=== PATIENT | female | born 1990 | race Caucasian/White ===

== ENCOUNTER 2018-08-15 11:40 | Inpatient (IN) | payer MEDICAID ==
[~2018-08-15] VITALS: Ht 157.5 cm; Wt 77.0 kg
[~2018-08-15 11:40] MED LIST: FERR-31 PO; FOLI-49 PO; PRENAT PO
[2018-08-15 12:44] VITALS: Ht 157.5 cm; Wt 77.0 kg
[2018-08-15 12:45] VITALS: BP 132/78; PULSE 86; RESP 20
--- NOTE | 2018-08-15 14:25 | TRIAGE ---
OB Triage Datetime Report Generated by CPN: 08/15/2018 14:25 Datetime: 08/15/2018 12:40 Time of Arrival: 08/15/2018 11:30 EGA: 40.1 Arrived By: Ambulatory Arrived From: Home Chief Complaint: POST DATES Movement: Present Rupture of Membranes: Denies Vaginal Bleeding: None Vaginal Discharge: Denies Recent Sexual Intercouse: Denies Abdominal Trauma: Not Applicable Patient Complaints: None; Other Time Provider Notified: 08/08/2018 14:00 Provider Notified: DR VILLARREAL Initial Plan: EFM, LAB WORK AND US Datetime: 08/15/2018 12:38 Maternal Assessment Level of Consciousness: Fully Conscious DTR's/Clonus: DTRs 2+; No Clonus Headache: Denies Blurred Vision: No Respiratory Effort: Unlabored; Regular Rhythm; Equal Expansion Breath Sounds, Left: Clear and Equal Breath Sounds, Right: Clear and Equal Nausea/Vomiting: Denies RUQ Epigastric Pain: Denies Facial Edema: None Temperature Route: Axillary Fall Risk Assessment History of Falling: (0) No Secondary Diagnosis: (0) No Ambulatory Aid: (0) Bedrest/Nurse Assist IV Therapy: (0) No Gait: (0) Normal/Bedrest/Immobile Mental Status: (0) Oriented to Own Ability Fall Score: 0 Fall Risk Score Definition: No Risk: No action required Datetime: 08/15/2018 11:54 Maternal Assessment Level of Consciousness: Fully Conscious DTR's/Clonus: DTRs 2+ Headache: Denies Blurred Vision: No Nausea/Vomiting: Denies RUQ Epigastric Pain: Denies Facial Edema: None Labor Evaluation Frequency: OCCAS Monitor Mode: External Quality: Mild Pattern: Normal: <= 5 Contractions in 10 Minutes Resting Tone [place]: Relaxed Heart Rate FHR Baseline Rate: 145 Monitor Mode: External US FHR Baseline Changes: No Baseline Change Variability: Moderate 6-25 bpm Accelerations: 15X15 Decelerations: None Category: Category I Pain Assessment Pain Scale: 0 Pain Presence: None/Denies Pain Type: N/A Pain Location: Abdomen Pain Goal: 0 Vaginal Exam Membrane Status: Intact
[2018-08-15] MEDS ORDERED: CEFAZOLIN 2 GM/50 ML (PMX) 50 ML IVPB ONE (14:30)
[2018-08-15] MEDS ORDERED: MISOPROSTOL 200 MCG TAB PR PRN (14:30)
[2018-08-15] MEDS ORDERED: LIDOCAINE 1% (MPF) 30 ML INJ INJ PRN (14:30)
[2018-08-15] MEDS ORDERED: METHYLERGONOVINE 0.2 MG INJ IM PRN (14:30)
[2018-08-15] MEDS ORDERED: OXYTOCIN 30 UNITS/LR 500 ML IV PRN (14:30)
[2018-08-15] MEDS ORDERED: IBUPROFEN 600 MG TAB PO PRN (14:30)
[2018-08-15] MEDS ORDERED: BUTORPHANOL 1 MG INJ IV PRN (14:30)
[2018-08-15] MEDS ORDERED: CARBOPROST 250 MCG INJ IM PRN (14:30)
[2018-08-15] MEDS ORDERED: OXYTOCIN 30 UNITS/LR 500 ML IV SCH ×2 (14:30)
[2018-08-15] MEDS ORDERED: BUTORPHANOL 2 MG INJ IV PRN (14:30)
[2018-08-15] MEDS: LACTATED RINGER'S 1,000 ML IV SCH ×2 (15:06→19:04)
--- NOTE | 2018-08-15 15:28 | HP ---
Date/Time of Note Date/Time of Note DATE: 08/15/18 TIME: 15:25 OB - History Hx of Present Chief Complaint: post date Estimated Due Date: Aug 14, 2018 : 2 Para: 1 Spontaneous : 0 Therapeutic : 0 Care: Good Care Ultrasounds: Normal mid trimester US Obstetrical Complications: None Medical Complications: None Past Family/Social History * Past Medical, Surgical, Family and Obstetric Histories reviewed from chart. GBS Status: Positive OB Admission Exam Vital Signs Vital Signs Vital Signs Date Temp Pulse Resp B/P (MAP) Pulse Ox O2 O2 Flow FiO2 Time Delivery Rate 08/15/18 97.8 86 20 132/78 Room Air 12:45 (96) Physical Exam HEENT: WNL Heart: Rhythm Normal Lungs: Clear, Equal Abdomen: WNL Extremities: Normal Reflexes: Normal Cervical Dilatation: 1cm Effacement: 75% Station: -1 Membranes: Intact Heart Rate: 120's Accelerations: Accelerations Present Decelerations: No Decelerations Last 72 hours Lab Results CBC & BMP 08/15/18 12:00 Liver Function Test 08/15/18 12:00 Alanine Aminotransferase (ALT/SGPT) 7 L Albumin 3.5 Alkaline Phosphatase 267 H Aspartate Amino Transf (AST/SGOT) 22 Direct Bilirubin 0.00 Total Protein 6.9 OB Assessment/Plan Reason for admission: other Other Assessment: Early labor Plan: Induction Induction Method: per Pitocin Protocol LEANNE VILLARREAL MD Aug 15, 2018 15:28
[2018-08-15] MEDS ORDERED: LACTATED RINGER'S 1,000 ML IV PRN (20:24)
[2018-08-15] MEDS ORDERED: CEFAZOLIN 1 GM/50 ML (PMX) 50 ML IVPB SCH (22:00)
[2018-08-15] MEDS: CEFAZOLIN 1 GM/50 ML (PMX) 50 ML IVPB SCH (22:54)
[2018-08-16] MEDS: LACTATED RINGER'S 1,000 ML IV SCH ×3 (02:43→18:19)
[2018-08-16] MEDS: OXYTOCIN 30 UNITS/LR 500 ML IV SCH (03:09)
[2018-08-16] MEDS: CEFAZOLIN 1 GM/50 ML (PMX) 50 ML IVPB SCH ×3 (05:55→19:58)
[2018-08-16] MEDS: MISOPROSTOL 50 MCG CAPSULE VAG SCH ×3 (13:58→22:35)
[2018-08-17] VITALS (13 sets, daily range): BP systolic 118–184; BP diastolic 60–95; PULSE 63–84; RESP 18
[2018-08-17] MEDS: LACTATED RINGER'S 1,000 ML IV SCH ×2 (02:28→11:59)
[2018-08-17] MEDS: MISOPROSTOL 50 MCG CAPSULE VAG SCH ×3 (02:47→09:00)
[2018-08-17] MEDS: CEFAZOLIN 1 GM/50 ML (PMX) 50 ML IVPB SCH ×2 (03:59→11:56)
--- NOTE | 2018-08-17 10:24 | PREAC ---
Date/Time of Note Date/Time of Note DATE: 08/17/18 TIME: 10:23 Anesthesia Eval and Record Evaluation Time Pre-Procedure Interview DATE: 08/17/18 TIME: 10:23 Age 28 Sex female NPO: 8 hrs Preoperative diagnosis labor pain Planned procedure labor epidural Past Medical History Past Medical History: None Surgery & Anesthesia Issues No known issue Meds Anticoagulation: No Beta Lucille within 24 hr: No Reason Beta Lucille not given: Pt. not on B-Lucille Reported Medications Ferrous Sulfate (Iron Supplement) 1 Tab Tablet, 1 TAB PO DAILY, TAB 03/23/16 Folic Acid* (Folic Acid*) 1 Mg Tablet, 1 MG PO DAILY, TAB 03/23/16 Multivit/Min/Fol Ac/Iron/Pren* ( S*) 1 Tab Tab, 1 TAB PO DAILY, TAB 03/22/16 Current Medications Lactated Ringer's 1,000 ml @ 125 mls/hr Q8H IV Last administered on 08/17/18at 02:28; Admin Dose 125 MLS/HR; Start 08/15/18 at 14:03 Butorphanol Tartrate (Stadol) 1 mg Q2H PRN IV PAIN; Start 08/15/18 at 14:30 Butorphanol Tartrate (Stadol) 2 mg Q2H PRN IV PAIN; Start 08/15/18 at 14:30 Lidocaine (Xylocaine 1% (Mpf)) 30 ml ONCE PRN INJ EPISIOTOMY; Start 08/15/18 at 14:30 Oxytocin/Lactated Ringer's 500 ml @ 500 mls/hr ONCE POST IV ; Start 08/15/18 at 14:30 Oxytocin/Lactated Ringer's 500 ml @ 125 mls/hr POST IV ; Start 08/15/18 at 14:30 Ibuprofen (Motrin) 600 mg ONCE PRN PO PAIN LEVEL 1-5; Start 08/15/18 at 14:30 Oxytocin/Lactated Ringer's 500 ml @ 0 mls/hr ONCE PRN IV VAGINAL BLEEDING; Start 08/15/18 at 14:30 Methylergonovine Maleate (Methergine) 0.2 mg ONCE PRN IM VAGINAL BLEEDING; Start 08/15/18 at 14:30 Carboprost Tromethamine (Hemabate) 250 mcg ONCE PRN IM VAGINAL BLEEDING; Start 08/15/18 at 14:30 Misoprostol (Cytotec) 1,000 mcg ONCE PRN AK VAGINAL BLEEDING; Start 08/15/18 at 14:30 Cefazolin Sodium 50 ml @ 100 mls/hr Q8 IVPB Last administered on 08/17/18 03:59; Admin Dose 100 MLS/HR; Start 08/15/18 at 23:00 Lactated Ringer's 1,000 ml @ 2,000 mls/hr Q30M PRN IV ANESTHESIA Last administered on 08/17/18 09:50; Admin Dose 2,000 MLS/HR; Start 08/15/18 at 20:24 Oxytocin/Lactated Ringer's 500 ml @ 0 mls/hr FOR AUGMENTATION IV Last administered on 08/16/18 03:09; Admin Dose 1 MLS/HR; Start 08/16/18 at 03:00 Misoprostol (Cytotec 50 Mcg Capsule) 50 mcg Q4 VAG Last administered on 08/17/18 06:41; Admin Dose 50 MCG; Start 08/16/18 at 14:00 Meds reviewed: Yes Allergies Coded Allergies: Penicillins (Verified Allergy, Intermediate, RASH, 08/15/18) Allergies Reviewed: Yes Labs/Studies Labs Reviewed: Reviewed by anesthesiologist Result Diagram: 08/15/18 1200 08/15/18 1200 test: Positive Pre-procedure Exam Last vitals Vital Signs Date Temp Pulse Resp B/P (MAP) Pulse Ox O2 O2 Flow FiO2 Time Delivery Rate 08/15/18 97.8 86 20 132/78 Room Air 12:45 (96) Airway: Adequate mouth opening, Adequate thyromental dist Mallampati: Mallampati III Teeth: Normal Lung: Normal Heart: Normal ASA Physical Status ASA physical status: 2 Emergency: None Planned Anesthetic Neuraxial: Epidural Planned Pain Management Epidural, Parenteral pain med, Other neuraxial med Pre-operative Attestations Prior to commencing anesthesia and surgery, the patient was re-evaluated, there was verification of: *The patient's identity *The results of appropriate recent lab work and preoperative vital signs *The above evaluation not changing prior to induction *Anesthetic plan, risk benefits, alternative and complications discussed with patient/family; questions answered; patient/family understands, accepts and wishes to proceed. DAMIAN CARLOS MD Aug 17, 2018 10:24
[2018-08-17] MEDS ORDERED: ONDANSETRON 4 MG INJ IV PRN (10:30)
[2018-08-17] MEDS ORDERED: DIPHENHYDRAMINE 50 MG INJ IV PRN (10:30)
[2018-08-17] MEDS ORDERED: FENTAnyl 2MCG/ML-ROPIV 0.2% 100 ML BAG EPI SCH (10:30)
[2018-08-17] MEDS ORDERED: KETOROLAC 30 MG INJ IV PRN (10:30)
[2018-08-17] MEDS ORDERED: HYDROmorphONE 0.5 MG/0.5 ML SYG IV PRN ×2 (10:30)
[2018-08-17] MEDS ORDERED: NALOXONE (0.4 MG/ML) INJ IV PRN (10:30)
[2018-08-17] MEDS ORDERED: ZOLPIDEM 5 MG TAB PO PRN (10:30)
[2018-08-17] MEDS: OXYTOCIN 30 UNITS/LR 500 ML IV SCH (11:04)
--- NOTE | 2018-08-17 14:24 | LDN ---
Date/Time of Note Date/Time of Note DATE: 08/17/18 TIME: 14:19 Delivery Summary Weeks of Gestation 40 weeks Placenta Delivered: Spontaneously Meconium: none Episiotomy: No Anesthesia type: Epidural Estimated blood loss: 300 Sponge & Needle done & correct: Yes All needle counts correct: Yes Any foreign bodies felt in the: No Delivery Information Sex Infant Sex: female Apgars 1 Minute: 9 5 Minute: 9 Suctioning Nose & mouth suctioned at laxmi: Yes Delee suction performed: No Umbilical Cord Umbilical cord with: 3 Vessels Cord presentations: nuchal cord Nuchal cord present X: 1 Cord Blood was obtained: Yes Mother & Baby Disposition Disposition Mom & Baby to Maternity; Good: Yes LEANNE VILLARREAL MD Aug 17, 2018 14:24
--- NOTE | 2018-08-17 15:10 | NUR ---
ADMITTED PT AND BABY AT THIS TIME. NOTED BP READINGS HIGH. BP 169/90, HRT65, 162/95, 64. 162/91/ PT ASYMPTOMATIC. DENIES SOB, DENIES CHEST PAIN, DENIES BLURRED VISION. HISTORY OF HTN LAST TRIMESTER. DR. VILLARREAL TO BE NOTIFY. Addendum: 08/17/18 at 1632 by SHAJI CERVANTES RN Amended: Links added.
[2018-08-17] MEDS: LACTATED RINGER'S 1,000 ML IV* SCH ×2 (15:36→17:43)
[2018-08-17] MEDS ORDERED: METHYLERGONOVINE 0.2 MG INJ IM PRN (16:00)
[2018-08-17] MEDS ORDERED: MISOPROSTOL 200 MCG TAB PR PRN (16:00)
[2018-08-17] MEDS ORDERED: OXYTOCIN 30 UNITS/LR 500 ML IV PRN (16:00)
[2018-08-17] MEDS ORDERED: BENZOCAINE 20% 56 ML SPRAY TOP PRN (16:00)
[2018-08-17] MEDS ORDERED: DIBUCAINE 1% 30 GM OINT TOP PRN (16:00)
[2018-08-17] MEDS ORDERED: ACETAMINOPHEN 325 MG TAB PO PRN (16:00)
[2018-08-17] MEDS ORDERED: WITCH HAZEL/GLYCERIN PAD PR PRN (16:00)
[2018-08-17] MEDS ORDERED: CARBOPROST 250 MCG INJ IM PRN (16:00)
[2018-08-17] MEDS ORDERED: HYDROCODONE/APAP (5/325) TAB PO PRN (16:00)
[2018-08-17] MEDS ORDERED: MAGNESIUM SULFATE 4 GM/100 ML 100 ML IVPB ONE (16:00)
--- NOTE | 2018-08-17 16:15 | NUR ---
MAGNESIUM SULFATE DRIP 4GRAM BOLUS STARTED NOW, PER DR. VILLARREAL'S ORDERS. EDUCATED PT ABOUT MEDICATIONS, AND POSSIBLE SIDE EFFECTS. ENCOURAGED PT TO DECREASE STIMULATION, ENCOURAGED REST, TURN OFF LIGHT AND RELAX. RN IN ROOM, LIGHTS OFF, VISITORS LEFT, FOB AT BED SIDE. Addendum: 08/17/18 at 1641 by SHAJI CERVANTES RN Amended: Links added.
[2018-08-17] MEDS: MAGNESIUM SULFATE 20 GM/500 ML 500 ML IV SCH ×2 (16:21→21:18)
[2018-08-17] MEDS: IBUPROFEN 600 MG TAB PO SCH ×2 (17:44→23:42)
--- NOTE | 2018-08-17 18:48 | NUR ---
EOSS; PT CONTINUES ON MAGNESIUM DRIP 2GRAMS, LAST BP 135/85, HRT 73, AFEBRILE, ASYMPTOMATIC. ASSISTED PT OOB TO BATHROOM, AMBULATED WELL, VOIDED 800. EDUCATED ABOUT PERICARE, TUCKS AND SPRAY PROVIDED. DENIES PAIN. DOING WELL. Addendum: 08/17/18 at 1849 by HSAJI CERVANTES RN Amended: Links added.
[2018-08-17] MEDS: SENNA/DOCUSATE NA (8.6MG/50MG) TAB PO SCH (21:16)
[2018-08-18] VITALS (12 sets, daily range): BP systolic 116–147; BP diastolic 65–86; PULSE 59–79; RESP 16–19
[2018-08-18] MEDS: LACTATED RINGER'S 1,000 ML IV* SCH (03:55)
[2018-08-18] MEDS: IBUPROFEN 600 MG TAB PO SCH ×4 (05:43→23:32)
--- NOTE | 2018-08-18 06:03 | NUR ---
EOSS: Vital signs stable. No acute distress. Voiding well. Up and ambulating. and bonding well with baby.
--- NOTE | 2018-08-18 09:10 | NUR ---
DR. JUARES IS IN THE PATIENT ROOM AND NOTIFIED THAT LAST BP AT 0845 WAS 132/82 AND HR 77.
[2018-08-18] MEDS: SENNA/DOCUSATE NA (8.6MG/50MG) TAB PO SCH ×2 (09:15→21:18)
--- NOTE | 2018-08-18 09:20 | NUR ---
DR. JUARES ( COVERING DR. VILLARREAL) ORDERED TO DISCONTINUE IV MAGNESIUM, IV LR, AND KEEP SALINE LOCK.
--- NOTE | 2018-08-18 09:25 | NUR ---
DISCONTINUED IV MAGNESIUM AND IV LR AT THIS TIME PER DR. JUARES. PATIENT TOLERATED WELL.
--- NOTE | 2018-08-18 10:59 | PN ---
Date/Time of Note Date/Time of Note DATE: 08/18/18 TIME: 10:57 OB Subjective Subjective Subjective Ambulating. Vaginal bleeding decreased. Breast-feeding. Denies any complaint. Denies any headache, blurred vision epigastric pain or right upper quadrant pain. Reports decreased vaginal bleeding. OB Objective Objective Objective General appearance: Alert and oriented x4 does not appear to be in any acute distress Abdomen: Soft, fundus firm and nontender, palpable below the umbilicus Extremities: No calf tenderness no cord palpable negative Homans sign 1+ bilateral symmetric edema Breast: No evidence of engorgement or mastitis Laboratory Tests Test 08/18/18 00:41 08/18/18 07:03 Magnesium Level 4.2 mg/dl 3.7 mg/dl White Blood Count 10.5 10^3/ul Red Blood Count 3.58 10^6/ul Hemoglobin 10.5 g/dl Hematocrit 31.2 % Mean Corpuscular Volume 87.2 fl Mean Corpuscular Hemoglobin 29.3 pg Mean Corpuscular Hemoglobin Concent 33.7 g/dl Red Cell Distribution Width 13.7 % Platelet Count 165 10^3/UL Mean Platelet Volume 10.0 fl Immature Granulocytes % 0.600 % Neutrophils % 67.0 % Lymphocytes % 23.5 % Monocytes % 7.5 % Eosinophils % 1.0 % Basophils % 0.4 % Nucleated Red Blood Cells % 0.0 /100WBC Immature Granulocytes # 0.060 10^3/ul Neutrophils # 7.0 10^3/ul Lymphocytes # 2.5 10^3/ul Monocytes # 0.8 10^3/ul Eosinophils # 0.1 10^3/ul Basophils # 0.0 10^3/ul Nucleated Red Blood Cells # 0.0 10^3/ul OB Assessment/Plan Other Assessment: Status post induction for severe preeclampsia Status post On magnesium for seizure prophylaxis Adequate urine output. Asymptomatic. Blood pressures currently well controlled without meds. can stop magnesium now Continue watch blood pressure closely Routine care Mild anemia, asymptomatic, CARMEL JUARES MD Aug 18, 2018 10:59
--- NOTE | 2018-08-18 19:15 | NUR ---
EOSS: VS WNL, PATIENT VOIDED, NO BM YET, AMBULATING, D/C IV MG AND LR TODAY AT [address] JUARES. BONDING WELL WITH BABY.
[2018-08-19 04:15] VITALS: BP 120/72; PULSE 68; RESP 18
[2018-08-19] MEDS: IBUPROFEN 600 MG TAB PO SCH ×3 (05:18→17:51)
--- NOTE | 2018-08-19 06:12 | NUR ---
EOSS: Pt is in stable condition. No distress noted. Up and walking as desired. Fundus firm with scanty lochia noted. Bonding well with baby.
[2018-08-19 07:45] VITALS: BP 126/75; PULSE 66; RESP 18
[2018-08-19] MEDS ORDERED: DIPHTH/TET/ACEL PERTUSS (ADULT) 0.5 ML VIAL IM* ONE (09:00)
[2018-08-19] MEDS: SENNA/DOCUSATE NA (8.6MG/50MG) TAB PO SCH (09:18)
--- NOTE | 2018-08-19 11:00 | NUR ---
ZARINA FROM PHARMACY NOTIFIED THAT PATIENT NEEDS Tdap VACCINE. ARPI STATED HE WILL SEND IT.
[2018-08-19 15:40] VITALS: BP 123/85; PULSE 72; RESP 20
--- NOTE | 2018-08-19 16:01 | DS ---
Date/Time of Note Date/Time of Note DATE: 08/19/18 TIME: 15:58 Obstetrical Discharge Record Final Diagnosis Final Diagnosis: Term delivered Other Final Diagnosis GHTN Vaginal Delivery Obstetrical Delivery: Spontaneous Complications Augmentation: Yes Induction: No Rupture of Membranes: No Condition on Discharge Physical Assessment Last Vitals: VSS afebrile Voiding: Yes Bowel Movement: Yes Breast: Soft, non-tender Fundus: Firm Abdomen and Incision: N/A Episiotomy: N/A Calf Tenderness: No Patient Condition: Stable CARISSA GONZALEZ MD Aug 19, 2018 16:01
--- NOTE | 2018-08-19 16:03 | PD.PPDC ---
DIABETES EDUCATOR Discharge Instruction Diagnosis [id number] Final Diagnosis: Freyh4x s/p Condition [id number] Patient Condition: Igtqn0d Stable Diet Lrnst4Og Diet: [id number] Resume Regular Diet Activity/Restrictions [id number] Activity: Xrfju5q May Shower [id number] Restrictions: Whikx7q No Lifting Nothing in the Vagina No Iatan No Tampons, douche Follow-up Follow-up with Physician: 2, Week/Weeks Return to clinic for [id number] CHEMICAL RADIATION TECHNICIAN Instructions: Dzbet9v Fever greater than 101 Chills Worsening abdominal pain Excessive Vaginal Bleeding More than 2 pads per hour Unable to tolerate diet [id number] OB Instructions: Batkb2y Breast Tenderness Depression Blurried Vision Headache CARISSA GONZALEZ MD Aug 19, 2018 16:03
--- NOTE | 2018-08-19 16:40 | NUR ---
WRITTEN AND VERBAL DISCHARGE TEACHING AND INSTRUCTIONS GIVEN TO THE PATIENT VIA LANGUAGE LINE, [facility] [address] [id number]. INSTRUCTED MOTHER TO CALL CLINIC ON WEDNESDAY AND MAKE FOLLOW UP APPOINTMENT WITH DR. VILLARREAL IN 2 WEEKS. PATIENT VERBALIZED UNDERSTANDING. PATIENT WILL STAY A GUEST TO TAKE CARE OF THE BABY UNTIL TOMORROW.
--- NOTE | 2018-08-22 14:08 | NSTRPT ---
NST Information Datetime Report Generated by CPN: 08/22/2018 14:08 Datetime: 08/12/2018 08:00 NST Information EGA: 39.5 Test Number: 16 Time on Monitor: 08/12/2018 08:26 Time off Monitor: 08/12/2018 09:02 NST Duration (Min): 36 Reason for NST: Gestational Hypertension Test and Monitor Explained: Monitor Explained; Test Explained; Verbalized Understanding Pulse: 75 Resp: 18 SBP: 115 DBP: 70 Test Evaluation NST Interventions: None Patient States Movement: Present Contraction Frequency: irritability FHR Baseline : 125 Variability: Moderate 6-25bpm Accelerations: 15X15 Decelerations: None FHR Category: Category I NST Results: Reactive Comments: To u/s. CLAIRE 9.6cm. CEPHALIC. Electronically Signed By E-Signature: with User ID: [id number] Datetime: 08/10/2018 08:13 NST Information EGA: 39.3 NST Duration (Min): 41 Datetime: 08/05/2018 07:54 NST Information EGA: 38.5 NST Duration (Min): 23 Datetime: 08/02/2018 08:04 NST Information EGA: 38.2 NST Duration (Min): 32 Datetime: 07/29/2018 08:06 NST Information EGA: 37.5 NST Duration (Min): 39 Datetime: 07/26/2018 08:00 NST Information EGA: 37.2 NST Duration (Min): 47 Datetime: 07/22/2018 08:46 NST Information EGA: 36.5 NST Duration (Min): 32 Datetime: 07/19/2018 08:28 NST Information EGA: 36.2 NST Duration (Min): 34 Datetime: 07/15/2018 08:05 NST Information EGA: 35.5 NST Duration (Min): 45 Datetime: 07/12/2018 08:00 NST Information EGA: 35.2 NST Duration (Min): 34 Datetime: 07/06/2018 08:15 NST Information EGA: 34.3 NST Duration (Min): 25 Datetime: 07/04/2018 08:00 NST Information EGA: 34.1 NST Duration (Min): 26 Datetime: 07/01/2018 08:30 NST Information EGA: 33.5 NST Duration (Min): 38 Datetime: 06/28/2018 07:59 NST Information EGA: 33.2 NST Duration (Min): 62 Datetime: 06/24/2018 08:30 NST Information EGA: 32.5 NST Duration (Min): 78 Datetime: 06/22/2018 10:28 NST Information EGA: 32.3 Datetime: 06/22/2018 10:27 NST Duration (Min): 48
== END 2018-08-19 18:28 | disposition home or self-care (01) | DRG 807 ==
LOC: L-D 11:40 → OBT 11:40 → L-D 14:00 → OBT 14:09 → L-D 14:47 → PP1 08-17 15:16
PROVIDERS: ADMIT Obstetrics & Gynecology; ATTEND Obstetrics & Gynecology
PROC: 10E0XZZ Delivery of Products of Conception, External Approach (ICD-10-PCS; principal; 2018-08-17)
DX: O14.14 Severe pre-eclampsia complicating childbirth (principal); O69.81X0 Labor and delivery complicated by cord around neck, without compression, not applicable or unspecified; O48.0 Post-term pregnancy; O99.824 Streptococcus B carrier state complicating childbirth; O13.4 Gestational [pregnancy-induced] hypertension without significant proteinuria, complicating childbirth; O90.81 Anemia of the puerperium; D64.9 Anemia, unspecified; Z37.0 Single live birth; Z3A.40 40 weeks gestation of pregnancy
CPT/HCPCS: 62319; 76815; 76818; 80053; 81003; 83735; 84560; 85025; 85384; 85610; 85730; 86592; 86850; 86900; 86901; G0463; J0690; J2590; J3010; J3475; J7120